=== PATIENT | female | born 1975 ===

== ENCOUNTER 2017-06-20 14:39 | Observation (INO) | payer MEDICAID ==
[2017-06-20 14:40] VITALS: BMI 27.4
--- NOTE | 2017-06-20 15:21 | ED PDOC ---
HPI: Chest Pain Time Seen by Provider: 06/20/17 14:55 Chief Complaint (Nursing): Chest Pain Chief Complaint (Provider): Chest Pain History Per: Patient History/Exam Limitations: no limitations Onset/Duration Of Symptoms: Days (x3-4 ) Current Symptoms Are (Timing): Still Present Additional Complaint(s): Shavonne Zhu is a 41 year old female who presents to the emergency department with a complaint of intermittent chest pain associated with shortness of breath with exertion, headache, general weakness and left arm "heaviness" described as "carrying 30-40 pound weights" ongoing for 3-4 days. Denied any fever, chills or numbness. PMD: Alanna Navarro MD Past Medical History Reviewed: Historical Data, Nursing Documentation, Vital Signs Vital Signs: Last Vital Signs Temp 98.0 F 06/20/17 14:47 Pulse 77 06/20/17 14:47 Resp 16 06/20/17 14:47 BP 116/64 06/20/17 15:29 Pulse Ox 97 06/20/17 17:48 - Medical History PMH: No Chronic Diseases - Surgical History Surgical History: (x2) - Family History Family History: States: CAD (myocardial infarction), Diabetes, Hypertension - Social History Current smoker - smoking cessation education provided: No Alcohol: None Drugs: Denies - Immunization History Hx Tetanus Toxoid Vaccination: No Hx Influenza Vaccination: No Hx Pneumococcal Vaccination: No - Home Medications Home Medications: Ambulatory Orders Medication Instructions Recorded No Known Home Med 06/20/17 - Allergies Allergies/Adverse Reactions: Allergies Allergy/AdvReac Type Severity Reaction Status Date / Time No Known Allergies Allergy Verified 10/25/15 01:18 Review of Systems ROS Statement: Except As Marked, All Systems Reviewed And Found Negative (and as per HPI) Constitutional: Negative for: Fever, Chills Cardiovascular: Positive for: Chest Pain (intermittent) Respiratory: Positive for: SOB with Exertion Musculoskeletal: Positive for: Arm Pain (left "heaviness") Neurological: Positive for: Weakness (generalized), Headache. Negative for: Numbness Physical Exam - Reviewed Nursing Documentation Reviewed: Yes Vital Signs Reviewed: Yes - Physical Exam Appears: Positive for: Non-toxic, In Acute Distress (mild painful) Head Exam: Positive for: ATRAUMATIC, NORMOCEPHALIC Skin: Positive for: Warm, Dry Eye Exam: Positive for: EOMI, PERRL ENT: Negative for: Pharyngeal Erythema, Tonsillar Exudate Neck: Positive for: Painless ROM, Supple Cardiovascular/Chest: Positive for: Regular Rate, Rhythm, Chest Non Tender. Negative for: Edema, Murmur Respiratory: Positive for: Normal Breath Sounds. Negative for: Accessory Muscle Use, Rales, Rhonchi, Wheezing, Respiratory Distress Gastrointestinal/Abdominal: Positive for: Bowel Sounds, Soft. Negative for: Tenderness, Mass, Distended, Guarding, Rebound Back: Positive for: Normal Inspection. Negative for: L CVA Tenderness, R CVA Tenderness Extremity: Positive for: Normal ROM. Negative for: Pedal Edema, Calf Tenderness Lymphatic: Negative for: Adenopathy Neurologic/Psych: Positive for: Alert. Negative for: Motor/Sensory Deficits - Laboratory Results Result Diagrams: 06/20/17 15:40 06/20/17 15:40 Urine POC: Negative Urine dip results: Negative for: Leukocyte Esterase, Blood, Nitrate, Ketones, Glucose, Bilirubin - ECG ECG: Positive for: Interpreted By Me ECG Rhythm: Positive for: Normal QRS, Normal ST Segment, Sinus Rhythm (72) O2 Sat by Pulse Oximetry: 97 (RA) Pulse Ox Interpretation: Normal - Radiology X-Ray: Read By Radiologist X-Ray Interpretation: No Acute Disease - Progress Re-evaluation Time: 18:14 Condition: Unchanged Medical Decision Making Medical Decision Making: Initial Impression: Chest pain; Left arm heaviness Differential diagnosis: Acute coronary syndrome; Pulmonary embolism; Aortic dissection; Musculoskeletal strain; Stroke; Electrical conduction abnormality Initial Plan: Pt has chest pain with anginal quality and family history. Will need hospitalization to rule out ACS with serial troponins, pending ER workup. * Type and screen * CT head without contrast * B-type Natriuretic peptide * Labs * Magnesium * Phosphorous * TSH * Troponin I * Urine dipstick * PTT * PT * CXR * Re-evaluation Time: 1616 --CT Head FINDINGS: HEMORRHAGE: No intracranial hemorrhage. BRAIN: No mass effect or edema. No atrophy or chronic microvascular ischemic changes. VENTRICLES: Unremarkable. No hydrocephalus. CALVARIUM: Unremarkable. PARANASAL SINUSES: Unremarkable as visualized. No significant inflammatory changes. MASTOID AIR CELLS: Unremarkable as visualized. No inflammatory changes. OTHER FINDINGS: None. IMPRESSION: No evidence of acute intracranial hemorrhage intracranial collection territorial infarct mass effect or midline shift. Accession No. 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 PLEURA: No pleural effusion is identified. CARDIOVASCULAR: Heart size is within normal limits. OSSEOUS STRUCTURES: Visualized osseous structures are unremarkable. VISUALIZED UPPER ABDOMEN: Unremarkable. OTHER FINDINGS: None. IMPRESSION: No acute cardiopulmonary process seen. No significant emergent lab abnormalities. HOLLIS pt findings and plan of care. [facility]. Scribe Attestation: Documented by Itzel Nix, acting as a scribe for Maryann Nevarez MD. Provider Scribe Attestation: All medical record entries made by the Scribe were at my direction and personally dictated by me. I have reviewed the chart and agree that the record accurately reflects my personal performance of the history, physical exam, medical decision making, and the department course for this patient. I have also personally directed, reviewed, and agree with the discharge instructions and disposition. Disposition - Clinical Impression Clinical Impression: Chest pain Discussed With DrRosa: Delano Su Doctor Will See Patient In The: Hospital Counseled Patient/Family Regarding: Studies Performed, Diagnosis - Disposition Disposition Time: 17:30 Condition: STABLE Forms: [facility] (Kosovan) - Pt Status Changed To: Hospital Disposition Of: Observation - POA Present On Arrival: None
[2017-06-20 15:55] LABS: BASO # 0.1 K/uL (0.0-0.2); EOS # 0.1 K/uL (0.0-0.7); EOS % 1.3 % (0.0-4.0); HEMOGLOBIN 13.7 g/dL (12.0-16.0); MEAN CELL VOLUME 86.1 fl (81.0-99.0); MEAN CORPUSCULAR HEMOGLOBIN 29.4 pg (27.0-31.0); MEAN CORPUSCULAR HGB CONC 34.2 g/dL (33.0-37.0); MEAN PLATELET VOLUME 8.9 fl (7.2-11.7); MONO # 0.7 K/uL (0.0-0.8); MONO % 8.2 % (0.0-10.0); NEUT # 6.1 K/uL (1.8-7.0); NEUT % 67.5 % (50.0-75.0); RBC 4.64 Mil/uL (3.80-5.20); RED CELL DISTRIBUTION WIDTH 12.6 % (11.5-14.5); WHITE BLOOD COUNT 9.1 K/uL (4.8-10.8)
[2017-06-20 16:09] LABS: ALB/GLOB RATIO 1.4 (1.0-2.1); ALBUMIN 4.2 g/dL (3.5-5.0); ALT/SGPT 33 U/L (9-52); AST/SGOT 31 U/L (14-36); BLOOD UREA NITROGEN 19 mg/dl (7-17); CALCIUM 8.9 mg/dL (8.4-10.2); GFR AFRICAN-AMERICAN > 60; GFR NON-AFRICAN AMERICAN > 60
--- NOTE | 2017-06-20 16:18 | CT ---
PROCEDURE: CT HEAD WITHOUT CONTRAST. HISTORY: LEFT arm heaviness COMPARISON: Comparison is made to the previous study dated 10/25/2015 TECHNIQUE: Axial computed tomography images were obtained through the head/brain without intravenous contrast. Radiation dose: Total exam DLP = 824.75 mGy-cm. This CT exam was performed using one or more of the following dose reduction techniques: Automated exposure control, adjustment of the mA and/or kV according to patient size, and/or use of iterative reconstruction technique. FINDINGS: HEMORRHAGE: No intracranial hemorrhage. BRAIN: No mass effect or edema. No atrophy or chronic microvascular ischemic changes. VENTRICLES: Unremarkable. No hydrocephalus. CALVARIUM: Unremarkable. PARANASAL SINUSES: Unremarkable as visualized. No significant inflammatory changes. MASTOID AIR CELLS: Unremarkable as visualized. No inflammatory changes. OTHER FINDINGS: None. IMPRESSION: No evidence of acute intracranial hemorrhage intracranial collection territorial infarct mass effect or midline shift.
[2017-06-20 16:26] LABS: INR 1.2 (0.9-1.2); PARTIAL THROMBOPLASTIN TIME 28.4 Seconds (25.6-37.1); PROTHROMBIN TIME 12.6 Seconds (9.8-13.1)
--- NOTE | 2017-06-20 17:06 | RAD ---
HISTORY: chest pain COMPARISON: None TECHNIQUE: Chest PA and lateral FINDINGS: LUNGS: No focal consolidation is seen. PLEURA: No pleural effusion is identified. CARDIOVASCULAR: Heart size is within normal limits. OSSEOUS STRUCTURES: Visualized osseous structures are unremarkable. VISUALIZED UPPER ABDOMEN: Unremarkable. OTHER FINDINGS: None. IMPRESSION: No acute cardiopulmonary process seen.
[2017-06-21 05:35] VITALS: RESP 18
[2017-06-21] MEDS ORDERED: Pneumococcal 23-Valent Vaccine IM ONE (06:00)
--- NOTE | 2017-06-21 10:34 | CARD ---
APPROVED REPORT EKG Measurement Heart [id number] <Conclusion> Normal sinus rhythm with sinus arrhythmia Normal ECG
[2017-06-21 12:49] VITALS: BP 105/69; PULSE 78; TEMP 98.1; O2SAT 98
--- NOTE | 2017-06-21 18:39 | CP.PCM.HP ---
History of Present Illness - History of Present Illness History of Present Illness: 41 y/o F with no significant PMHx presented yesterday to ED c/o chest pain. Patient states that she presented to ED with a h/o intermittent chest pain associated with SOB with exertion, left arm heaviness sensation. Dnies N/V, abdominal pain, dizziness, diarrheas. Present on Admission - Present on Admission Any Indicators Present on Admission: No History of DVT/PE: No History of Uncontrolled Diabetes: No Urinary Catheter: No Decubitus Ulcer Present: No Review of Systems - Review of Systems All systems: reviewed and no additional remarkable complaints except (as per HPI ) Past Patient History - Infectious Disease Hx of Infectious Diseases: None - Past Medical History & Family History Past Medical History?: No - Past Social History Smoking Status: Never Smoked - MUSCULOSKELETAL/RHEUMATOLOGICAL Hx Falls: No - PSYCHIATRIC Hx Substance Use: No - SURGICAL HISTORY Hx Surgeries: Yes Hx Section: Yes - ANESTHESIA Hx Anesthesia: Yes Hx Anesthesia Reactions: No Meds Allergies/Adverse Reactions: Allergies Allergy/AdvReac Type Severity Reaction Status Date / Time No Known Allergies Allergy Verified 10/25/15 01:18 Physical Exam - Constitutional Appears: No Acute Distress - Eye Exam Eye Exam: Normal appearance - ENT Exam ENT Exam: Mucous Membranes Moist - Respiratory Exam Respiratory Exam: Clear to Auscultation Bilateral, NORMAL BREATHING PATTERN - Cardiovascular Exam Cardiovascular Exam: REGULAR RHYTHM, +S1, +S2 - GI/Abdominal Exam GI & Abdominal Exam: Normal Bowel Sounds, Soft. absent: Distended, Firm, Guarding, Rigid, Tenderness - Extremities Exam Extremities exam: Positive for: normal inspection. Negative for: calf tenderness, pedal edema - Back Exam Back exam: NORMAL INSPECTION - Neurological Exam Neurological exam: Alert, Normal Gait, Oriented x3 - Psychiatric Exam Psychiatric exam: Normal Affect - Skin Skin Exam: Dry, Intact, Normal Color Results - Vital Signs Recent Vital Signs: Last Vital Signs Temp 98.1 F 06/21/17 12:00 Pulse 78 06/21/17 12:00 Resp 18 06/21/17 12:00 BP 105/69 06/21/17 12:00 Pulse Ox 98 06/21/17 12:00 - Labs Result Diagrams: 06/20/17 15:40 06/20/17 15:40 Labs: Laboratory Results - last 24 hr 06/20/17 06/21/17 06/21/17 23:15 00:41 08:45 Troponin I < 0.0120 < 0.0120 < 0.0120 Assessment & Plan - Assessment and Plan (Free Text) Assessment: 41 y/o F admitted to telemetry with chest pain to r/o ACS. Plan: Chest pain admit to telemetry for observation Troponin I x 3 negative, pending 1 troponin I EKG at ED showed no evidence of acute ST-T wave changes CXR showed no acute disease consider DC if pt is pain free and last troponin is neg f/u with PMD as outpatient we recommend lipid profile and HgbA1C as outpatient and possible Tx w/ aspirin 81 and Statin DVT prophylaxis ambulating - Date & Time Date: 06/21/17 Time: 07:50
== END 2017-06-21 14:29 | disposition home or self-care (01) ==
LOC: H.ER 14:39 → H.ERHOLD 18:08 → H.TEL 20:54
PROVIDERS: ADMIT Family Medicine; ATTEND Family Medicine
DX: R07.9 Chest pain, unspecified (principal); Z23 Encounter for immunization; Z82.49 Family history of ischemic heart disease and other diseases of the circulatory system

== ENCOUNTER 2017-06-29 08:54 | Emergency (ER) | payer MEDICAID ==
[2017-06-29 08:54] VITALS: BMI 27.4
[2017-06-29 09:04] VITALS: BP 116/71; PULSE 74; RESP 18; TEMP 98.6; O2SAT 98
--- NOTE | 2017-06-29 09:41 | ED PDOC ---
HPI: Back Time Seen by Provider: 06/29/17 09:13 Chief Complaint (Nursing): Back Pain Chief Complaint (Provider): right sided back pain History Per: Patient History/Exam Limitations: no limitations Onset/Duration Of Symptoms: Days (x 1) Additional Complaint(s): Shavonne is a 41 year old female, who denies any previous medical history, who presents to the ED with complaints of right lower back pain radiating to the right leg ongoing for 1 day. She denies any weakness, paresthesia, numbness or urinary symptoms. PMD: none provided Past Medical History Reviewed: Historical Data, Nursing Documentation, Vital Signs Vital Signs: Last Vital Signs Temp 98.6 F 06/29/17 09:03 Pulse 74 06/29/17 09:03 Resp 18 06/29/17 09:03 BP 116/71 06/29/17 09:03 Pulse Ox 98 06/29/17 09:03 - Medical History PMH: No Chronic Diseases - Surgical History Surgical History: (x2) - Family History Family History: States: Unknown Family Hx, CAD (myocardial infarction), Diabetes , Hypertension - Immunization History Hx Tetanus Toxoid Vaccination: No Hx Influenza Vaccination: No Hx Pneumococcal Vaccination: No - Home Medications Home Medications: Ambulatory Orders Medication Instructions Recorded Cyclobenzaprine [Cyclobenzaprine 10 mg PO Q8 #10 tab 06/29/17 HCl] Naproxen [Naprosyn] 500 mg PO Q12H #20 tab 06/29/17 - Allergies Allergies/Adverse Reactions: Allergies Allergy/AdvReac Type Severity Reaction Status Date / Time No Known Allergies Allergy Verified 06/29/17 09:38 Review of Systems ROS Statement: Except As Marked, All Systems Reviewed And Found Negative Genitourinary Female: Negative for: Dysuria, Frequency, Incontinence, Hematuria , Vaginal Discharge, Vaginal Bleeding Musculoskeletal: Positive for: Back Pain (right lower), Leg Pain (right ) Neurological: Negative for: Weakness, Numbness Physical Exam - Reviewed Nursing Documentation Reviewed: Yes Vital Signs Reviewed: Yes - Physical Exam Appears: Positive for: Well, Non-toxic, No Acute Distress Head Exam: Positive for: ATRAUMATIC, NORMAL INSPECTION, NORMOCEPHALIC Skin: Positive for: Normal Color, Warm, Dry Eye Exam: Positive for: Normal appearance ENT: Positive for: Normal ENT Inspection Neck: Positive for: Normal, Painless ROM, Supple Cardiovascular/Chest: Positive for: Regular Rate, Rhythm Respiratory: Positive for: CNT, Normal Breath Sounds Gastrointestinal/Abdominal: Positive for: Normal Exam, Bowel Sounds, Soft Back: Positive for: Muscle Spasm (and tenderness bilaterally th parasacral region ). Negative for: L CVA Tenderness, R CVA Tenderness, Vertebral Tenderness Extremity: Positive for: Normal ROM Neurologic/Psych: Positive for: Alert, Oriented (x 3) - ECG O2 Sat by Pulse Oximetry: 98 (RA) Pulse Ox Interpretation: Normal - Progress Re-evaluation Time: 10:19 Condition: Improved Medical Decision Making Medical Decision Making: Initial Plan: * urine * urine dipstick * flexeril 10 mg PO * toradol 60 mg IM * reevaluation Scribe Attestation: Documented by Becky Cameron, acting as a scribe for Guanaco Amezcua MD. Provider Scribe Attestation: All medical record entries made by the Scribe were at my direction and personally dictated by me. I have reviewed the chart and agree that the record accurately reflects my personal performance of the history, physical exam, medical decision making, and the department course for this patient. I have also personally directed, reviewed, and agree with the discharge instructions and disposition. Disposition - Clinical Impression Clinical Impression: Back pain - Patient ED Disposition Is Patient to be Admitted: No Counseled Patient/Family Regarding: Studies Performed, Diagnosis, Need For Followup, Rx Given - Disposition Referrals: [facility] [Outside] Disposition: Routine/Home Disposition Time: 10:20 Condition: FAIR Prescriptions: Cyclobenzaprine [Cyclobenzaprine HCl] 10 mg PO Q8 #10 tab Naproxen [Naprosyn] 500 mg PO Q12H #20 tab Instructions: Back Pain (ED) Forms: [employer] (Citizen Of [place])
== END 2017-06-29 10:40 | disposition home or self-care (01) ==
LOC: H.ER 08:54
DX: M54.5 Low back pain (principal)
CPT/HCPCS: 81025; 96372; 99282; J1885

== ENCOUNTER 2018-07-03 07:58 | Emergency (ER) | payer MEDICAID ==
[2018-07-03 08:06] VITALS: BP 124/75; PULSE 75; RESP 20; TEMP 97; O2SAT 97
[2018-07-03 08:07] VITALS: BMI 31.7
--- NOTE | 2018-07-03 08:25 | ED PDOC ---
HPI: Female Pain Time Seen by Provider: 07/03/18 08:08 Chief Complaint (Provider): Foreign body History Per: Patient History/Exam Limitations: no limitations Onset/Duration Of Symptoms: Days (Jun 11) Associated Symptoms: denies: Fever, Chills, Back Pain, Urinary Symptoms Additional Complaint(s): Shavonne Zhu is a 42 year old female, with no significant past medical history, who presents to the emergency department stating she is unsure if she removed tampon after last period on June 11. Patient is also complaining of low back pain. She denies any vaginal discharge, dysuria, frequency, fever or chills. No further medical complaints. PMD: None provided. Past Medical History Reviewed: Historical Data, Nursing Documentation, Vital Signs Vital Signs: Last Vital Signs Temp 97 F L 07/03/18 08:05 Pulse 75 07/03/18 08:05 Resp 20 07/03/18 08:05 BP 124/75 07/03/18 08:05 Pulse Ox 97 07/03/18 08:05 - Medical History PMH: No Chronic Diseases - Surgical History Surgical History: (x2) - Family History Family History: States: Unknown Family Hx, CAD (myocardial infarction), Diabetes , Hypertension - Immunization History Hx Tetanus Toxoid Vaccination: No Hx Influenza Vaccination: No Hx Pneumococcal Vaccination: No - Home Medications Home Medications: Ambulatory Orders Medication Instructions Recorded Cyclobenzaprine [Cyclobenzaprine 10 mg PO Q8 #10 tab 06/29/17 HCl] Naproxen [Naprosyn] 500 mg PO Q12H #20 tab 06/29/17 Ibuprofen [Motrin Tab] 400 mg PO Q6 PRN #20 tab 05/01/18 Sulfamethoxazole/Trimethoprim 1 tab PO BID 7 Days #14 tab 05/01/18 [Bactrim DS 800 mg-160 mg] Naproxen [Naprosyn] 500 mg PO Q12H #20 tab 07/03/18 - Allergies Allergies/Adverse Reactions: Allergies Allergy/AdvReac Type Severity Reaction Status Date / Time Latex, Natural Rubber Allergy RASH Verified 07/03/18 08:30 Review of Systems ROS Statement: Except As Marked, All Systems Reviewed And Found Negative Constitutional: Negative for: Fever, Chills Genitourinary Female: Negative for: Dysuria, Frequency, Vaginal Discharge Musculoskeletal: Positive for: Back Pain (low) Physical Exam - Reviewed Nursing Documentation Reviewed: Yes Vital Signs Reviewed: Yes - Physical Exam Appears: Positive for: No Acute Distress Head Exam: Positive for: ATRAUMATIC, NORMAL INSPECTION, NORMOCEPHALIC Skin: Positive for: Normal Color, Warm, Dry Eye Exam: Positive for: Normal appearance, EOMI, PERRL Neck: Positive for: Painless ROM Cardiovascular/Chest: Positive for: Regular Rate, Rhythm. Negative for: Murmur Respiratory: Positive for: Normal Breath Sounds. Negative for: Respiratory Distress Gastrointestinal/Abdominal: Positive for: Normal Exam, Soft. Negative for: Tenderness Pelvic Exam: Positive for: Other (No foreign body seen or palpated. No tenderness). Negative for: Active Bleeding, Discharge Back: Positive for: Normal Inspection. Negative for: L CVA Tenderness, R CVA Tenderness Extremity: Positive for: Normal ROM (upper and lower extremities). Negative for : Deformity, Swelling Neurologic/Psych: Positive for: Alert, Oriented - ECG O2 Sat by Pulse Oximetry: 97 (RA) Pulse Ox Interpretation: Normal Medical Decision Making Medical Decision Making: Time: 08:08 Initial Plan: --Reevaluation ----- Scribe Attestation: Documented by Milo Kyle, acting as a scribe for Guancao Amezcua MD. Provider Scribe Attestation: All medical record entries made by the Scribe were at my direction and personally dictated by me. I have reviewed the chart and agree that the record accurately reflects my personal performance of the history, physical exam, medical decision making, and the department course for this patient. I have also personally directed, reviewed, and agree with the discharge instructions and disposition. Disposition - Clinical Impression Clinical Impression: Back strain - Patient ED Disposition Is Patient to be Admitted: No Counseled Patient/Family Regarding: Studies Performed, Diagnosis, Need For Followup, Rx Given - Disposition Referrals: [facility] [Outside] Disposition: Routine/Home Disposition Time: 08:55 Condition: FAIR Prescriptions: Naproxen [Naprosyn] 500 mg PO Q12H #20 tab Instructions: Low Back Pain in Adults, Muscle Strain
== END 2018-07-03 09:03 | disposition home or self-care (01) ==
LOC: H.ER 07:58
DX: S39.012A Strain of muscle, fascia and tendon of lower back, initial encounter (principal)

== ENCOUNTER 2018-10-30 16:29 | Emergency (ER) | payer MEDICAID ==
[2018-10-30 16:30] VITALS: BMI 31.7
[2018-10-30 16:41] VITALS: BP 135/87; PULSE 90; RESP 18; TEMP 98.1; O2SAT 100
[2018-10-30] MEDS ORDERED: DiphenhydrAMINE 50 mg/ml Inj IM STA (17:27)
[2018-10-30] MEDS ORDERED: Famotidine 40 MG/5 ML PO STA (17:27)
--- NOTE | 2018-10-30 17:52 | ED PDOC ---
HPI: Skin/Bite Injury Time Seen by Provider: 10/30/18 17:09 Chief Complaint (Nursing): Abnormal Skin Integrity Chief Complaint (Provider): Rash History Per: Patient History/Exam Limitations: no limitations Onset/Duration Of Symptoms: Days (x3 weeks) Current Symptoms Are (Timing): Still Present Additional Complaint(s): 43 year old female presents to the ED for evaluation of an itchy rash for the past three weeks which started on her right arm and spread the more she itched it. Did not take any medications prior to arrival. Otherwise denies new exposures, fever, facial swelling, cough, shortness of breath, nausea, and vomiting. LNMP: 10/11/2018 PMD: Alanna Navarro Past Medical History Reviewed: Historical Data, Nursing Documentation, Vital Signs Vital Signs: Last Vital Signs Temp 98.1 F 10/30/18 16:37 Pulse 90 10/30/18 16:37 Resp 18 10/30/18 16:37 BP 135/87 10/30/18 16:37 Pulse Ox 100 10/30/18 16:37 - Medical History PMH: No Chronic Diseases - Surgical History Surgical History: (x2) - Family History Family History: States: [place], CAD (myocardial infarction), Diabetes, Hypertension - Home Medications Home Medications: Ambulatory Orders Medication Instructions Recorded Cyclobenzaprine [Cyclobenzaprine 10 mg PO Q8 #10 tab 06/29/17 HCl] Naproxen [Naprosyn] 500 mg PO Q12H #20 tab 06/29/17 RX: Ibuprofen [Motrin Tab] 400 mg PO Q6 PRN #20 tab 05/01/18 Sulfamethoxazole/Trimethoprim 1 tab PO BID 7 Days #14 tab 05/01/18 [Bactrim DS 800 mg-160 mg] Naproxen [Naprosyn] 500 mg PO Q12H #20 tab 07/03/18 DiphenhydrAMINE [Benadryl] 50 mg PO Q6 PRN #30 cap 10/30/18 RX: Clotrimazole 1% Cream 1 applic TP BID #2 tube 10/30/18 [Lotrimin 1%] - Allergies Allergies/Adverse Reactions: Allergies Allergy/AdvReac Type Severity Reaction Status Date / Time Latex, Natural Rubber Allergy RASH Verified 07/03/18 08:30 Review of Systems ROS Statement: Except As Marked, All Systems Reviewed And Found Negative Constitutional: Negative for: Fever ENT: Negative for: Other (facial swelling) Respiratory: Negative for: Cough, Shortness of Breath Gastrointestinal: Negative for: Nausea, Vomiting Skin: Positive for: Rash (itchy) Physical Exam - Reviewed Nursing Documentation Reviewed: Yes Vital Signs Reviewed: Yes - Physical Exam Comments: GENERAL APPEARANCE: Patient is awake, alert, oriented x 3, in no acute distress. SKIN: (+) well-demarcated, scattered, erythematous plaques/scaling patches to bilateral upper and lower extremities. Otherwise (-) excoriations, (-) drainage, (-) crusting of lesions is present. No evidence of cellulitis present. HENT: (-) conjunctival injection, (-) chemosis. Oropharynx: clear (-) tongue or lip swelling, (-) tonsillar exudates, (-) erythema. Airway: patent (-) stridor, (-) hoarseness. Mucous membranes moist. Nares: Patent (-) rhinorrhea. NECK: Supple, FROM (-) lymphadenopathy, (-) tenderness. CARDIOVASCULAR: Normal rate and rhythm CHEST: (-) rales, (-) wheezing, (-) dyspnea, (-) stridor. Breath sounds equal bilaterally. Respirations even and nonlabored. ABDOMEN: Soft. (-) tenderness, (-) distention, (-) guarding NEURO: Mental status as above. Gait: steady. Speech: clear. (-) facial asymmetry (-) aphasia - ECG O2 Sat by Pulse Oximetry: 100 (RA) Pulse Ox Interpretation: Normal Medical Decision Making Medical Decision Making: Initial Impression: Tinea Corporis Time: 1724 Initial Plan: --Benadryl 25mg IM --Pepcid 40mg PO --Re-evaluation 1819 On re-evaluation, patient reports improvement of symptoms. On exam, patient remains AAOx3, in no acute distress. Vitals stable. Lab/Diagnostic results d/w the patient in great detail. Diagnosis of Tinea Marco cindy d/w the patient. Based on history, exam and diagnostic results, plan will be for outpatient follow up with PMD. Patient instructed to follow-up with pmd / referral provided / the clinic in 1-2 days without fail. Advised to take medication as prescribed. Return to the emergency room at any time for any new or worsening symptoms. Patient states she fully agrees with and understands discharge instructions. States that she agrees with the plan and disposition. Verbalized and repeated discharge instructions and plan. I have given the patient opportunity to ask any additional questions. ---- Scribe Attestation: Documented by Gerri Khan, acting as a scribe for Marivel Blackman PA-C. Provider Scribe Attestation: All medical record entries made by the Scribe were at my direction and personally dictated by me. I have reviewed the chart and agree that the record accurately reflects my personal performance of the history, physical exam, medical decision making, and the department course for this patient. I have also personally directed, reviewed, and agree with the discharge instructions and disposition. Disposition - Clinical Impression Clinical Impression: Ringworm of body, Tinea corporis - Patient ED Disposition Is Patient to be Admitted: No Counseled Patient/Family Regarding: Studies Performed, Diagnosis, Need For Followup, Rx Given - Disposition Referrals: Alanna Navarro MD [Family Provider] - Disposition: Routine/Home Disposition Time: 18:20 Condition: STABLE Additional Instructions: The emergency medical care you received today was directed at your acute symptoms. If you were prescribed any medication, please fill it and take as directed. It may take several days for your symptoms to resolve. Return to the Emergency Department if your symptoms worsen, do not improve, or if you have any other problems. Please contact your doctor in 2 days for re-evaluation and follow up / or call one of the physicians/clinics you have been referred to that are listed on the Patient Visit Information form that is included in your discharge packet. Bring any paperwork you were given at discharge with you along with any medications you are taking to your follow up visit. Our treatment cannot replace ongoing medical care by a primary care provider (PCP) outside of the emergency department. Prescriptions: RX: Clotrimazole 1% Cream [Lotrimin 1%] 1 applic TP BID #2 tube DiphenhydrAMINE [Benadryl] 50 mg PO Q6 PRN #30 cap PRN Reason: Itching / Pruritus Instructions: Ringworm Forms: [facility] (E[place]ian) Print Language: VIETNAMESE - POA Present On Arrival: None
[2018-10-30] MEDS ORDERED: DiphenhydrAMINE 50 mg/ml Inj ONE (18:11)
== END 2018-10-30 18:40 | disposition home or self-care (01) ==
LOC: H.ER 16:29
DX: B35.4 Tinea corporis (principal); Z82.49 Family history of ischemic heart disease and other diseases of the circulatory system
CPT/HCPCS: 96372; 99282; J1200